=== PATIENT | female | born 1950 | race Caucasian/White ===

== ENCOUNTER 2018-03-31 14:43 | Outpatient (CLI) | payer OTHER | END 2018-03-31 14:44 | disposition home or self-care (01) | LOC: BICMAMMO 14:43 | PROVIDERS: ATTEND Obstetrics & Gynecology | DX: Z12.31 Encounter for screening mammogram for malignant neoplasm of breast (principal); Z80.3 Family history of malignant neoplasm of breast | CPT/HCPCS: 77063; 77067 ==

== ENCOUNTER 2023-03-07 07:33 | Emergency (ER) | payer MEDICARE, BC ==
[2023-03-07] MEDS ORDERED: Ondansetron PF 4 MG/2 ML Vial ONE (08:14)
[2023-03-07] MEDS ORDERED: Morphine 2 MG/ML VIAL ONE ×2 (08:14→09:11)
[2023-03-07 09:13] LABS: ALT (SGPT) 21 U/L (8-55); AST (SGOT) 45 U/L (5-34); Albumin 4.2 g/dL (3.4-4.8); Alkaline Phosphatase 67 U/L (40-110); Anion Gap 14 mmol/L (10-20); BUN (Urea Nitrogen) 12 mg/dL (9.8-20.1); Bilirubin, Total 0.2 mg/dL (0.2-1.2); Calc. Creatinine Clearance 0 mL/min (70-130); Calcium 9.5 mg/dL (7.8-10.44); Carbon Dioxide 24 mmol/L (23-31); Chloride 103 mmol/L (98-107); Estimated GFR 77; Globulin 3.2 g/dL (2.4-3.5); Glucose 125 mg/dL (83-110); Lipase 30 U/L (8-78); Potassium 4.8 mmol/L (3.5-5.1); Protein, Total 7.4 g/dL (5.8-8.1); Sodium 136 mmol/L (136-145)
[2023-03-07 09:16] LABS: #Basophils 0.1 thou/uL (0.0-0.2); #Eosinphils 0.1 thou/uL (0.0-0.7); #Lymphocytes 1.8 thou/uL (1.20-3.40); #Monocytes 0.6 thou/uL (0.11-0.59); #Neutrophils 11.5 thou/uL (1.40-6.50); %Basophils 0.4 % (0.0-1.0); %Eosinophils 0.4 % (0.0-10.0); %Neutrophils 82.1 % (42.0-75.0); Hemoglobin 13.7 g/dL (12.0-16.0); Mean Corpuscular Hemoglobin 32.2 pg (27.0-31.0); Mean Corpuscular Volume 97.7 fl (78.0-98.0); Mean Platelet Volume 7.4 fL (7.4-10.4); Platelet Count 210 10x3/uL (130-400); RBC Distribution Width 12.2 % (11.5-14.5); Red Blood Cell (RBC) Count 4.25 mill/uL (4.20-5.40)
[2023-03-07] MEDS ORDERED: Ketorolac Tromethamine 30 MG/ML VIAL ONE (10:01)
[2023-03-07 12:06] LABS: Bacteria/HPF None Seen HPF (None Seen); Bilirubin Negative (Negative); Blood, Urine Trace (Negative); Clarity Clear (Clear); Glucose, Urine (Dipstick) Normal (Negative); Ketone, Urine Trace mg/dL (Negative); Leukocyte Negative Leu/uL (Negative); Nitrite Negative (Negative); Protein, Urine (Dipstick) Negative (Neg-Trace); Specific Gravity, Urine 1.049 (1.002-1.036); Squamous Epithelial 0-3 HPF (0-3); Urobilinogen Normal mg/dL (Less than 2); WBC/HPF 0-3 HPF (0-3)
== END 2023-03-07 14:50 | disposition home or self-care (01) ==
LOC: ERS 07:33
DX: N20.2 Calculus of kidney with calculus of ureter (principal); I10 Essential (primary) hypertension; E78.00 Pure hypercholesterolemia, unspecified; I25.2 Old myocardial infarction; Z79.82 Long term (current) use of aspirin; Z79.899 Other long term (current) drug therapy
CPT/HCPCS: 36415; 71045; 74176; 74177; 76705; 80053; 81003; 81015; 83690; 84484; 85025; 93005; 96374; 96375; 96376; J1885; J2272; J2405

== ENCOUNTER 2023-03-27 13:29 | Outpatient (CLI) | payer MEDICARE, BC | END 2023-03-27 13:30 | disposition home or self-care (01) | LOC: CT 13:29 | PROVIDERS: ATTEND Family Medicine | DX: K86.2 Cyst of pancreas (principal); K86.9 Disease of pancreas, unspecified | CPT/HCPCS: 74160 ==

== ENCOUNTER 2023-08-18 07:53 | Outpatient (CLI) | payer MEDICARE, BC | END 2023-08-18 07:54 | disposition home or self-care (01) | LOC: BICMAMMO 07:53 | PROVIDERS: ATTEND Physician Assistant | DX: R92.8 Other abnormal and inconclusive findings on diagnostic imaging of breast (principal) | CPT/HCPCS: 77065; G0279 ==

== ENCOUNTER 2023-12-09 16:58 | Inpatient (IN) | payer MEDICARE, BC ==
[~2023-12-09 16:58] MED LIST: Iopamidol-370 76% 500 ML MDV (1 ML CHARGE) ONE
[2023-12-09 18:59] LABS: Hemoglobin 11.1 g/dL (12.0-16.0); Manual Diff?? YES; Mean Corpuscular HGB CONC 33.6 g/dL (32.0-36.0); Mean Corpuscular Hemoglobin 31.5 pg (27.0-31.0); Mean Corpuscular Volume 93.8 fl (78.0-98.0); Mean Platelet Volume 9.1 fL (7.4-10.4); Platelet Count 325 10x3/uL (130-400); RBC Distribution Width 16.4 % (11.5-14.5); Red Blood Cell (RBC) Count 3.52 mill/uL (4.20-5.40); White Blood Cell (WBC) Count 25.7 10x3/uL (4.8-10.8)
[2023-12-09 19:00] LABS: Delete Auto Diff?? YES
[2023-12-09 19:25] LABS: Anisocytosis SLIGHT = 6-15 cells HPF (0-5); Burr Cells SLIGHT = 2-5 cells HPF (0-1); CellaVision Operator ID LAB.MJL; Lymphocytes 1 % (21-51); Monocytes 3 % (0-10); Neutrophil 95 % (42-75); Ovalocytes SLIGHT = 2-5 cells HPF (0-1); Platelet Adequacy Comment Platelets Normal; Poikilocytosis SLIGHT = 6-15 cells HPF (0-5); Polychromasia SLIGHT = 2-3 cells HPF (0-2); Target Cells SLIGHT = 2-5 cells HPF (0-1); Total Cell Count 100
[2023-12-09 21:13] LABS: ALT (SGPT) 14 U/L (8-55); AST (SGOT) 20 U/L (5-34); Albumin 3.9 g/dL (3.4-4.8); Alkaline Phosphatase 93 U/L (40-110); Anion Gap 13 mmol/L (10-20); BUN (Urea Nitrogen) 12 mg/dL (9.8-20.1); Bilirubin, Total 0.4 mg/dL (0.2-1.2); Calc. Creatinine Clearance 0 mL/min (70-130); Calcium 8.9 mg/dL (7.8-10.44); Carbon Dioxide 23 mmol/L (23-31); Chloride 103 mmol/L (98-107); Estimated GFR 98; Globulin 2.2 g/dL (2.4-3.5); Glucose 108 mg/dL (83-110); Lipase 16 U/L (8-78); Potassium 4.2 mmol/L (3.5-5.1); Protein, Total 6.1 g/dL (5.8-8.1); Sodium 135 mmol/L (136-145)
[2023-12-09] MEDS ORDERED: Fleet Saline Enema 133 ML BOT PR SCH (22:00)
[2023-12-09] MEDS ORDERED: Ondansetron ODT 4 MG TAB PO PRN (22:02)
[2023-12-09] MEDS ORDERED: Calcium Carbonate 500 MG ChewTAB PO PRN (22:02)
[2023-12-09] MEDS ORDERED: Ciprofloxacin Lactate/D5W 400 MG in Premix 1 BAG IVPB SCH (22:15)
[2023-12-09] MEDS ORDERED: Lactated Ringer's 1,000 ML IV SCH (22:15)
[2023-12-10] MEDS: Acetaminophen 325 MG TAB PO PRN ×2 (00:04→20:32)
[2023-12-10] MEDS: ALPRAZolam 0.5 MG TAB PO PRN ×2 (00:04→20:32)
[2023-12-10 00:28] VITALS: BMI 17.6
[2023-12-10 05:28] LABS: #Basophils 0.1 thou/uL (0.0-0.2); #Eosinphils 0.2 thou/uL (0.0-0.7); #Monocytes 0.7 thou/uL (0.11-0.59); #Neutrophils 6.8 thou/uL (1.40-6.50); %Basophils 0.5 % (0.0-1.0); %Eosinophils 2.5 % (0.0-10.0); %Monocytes 7.2 % (0.0-10.0); %Neutrophils 71.4 % (42.0-75.0); Hematocrit 31.1 % (36.0-47.0); Hemoglobin 10.2 g/dL (12.0-16.0); Mean Corpuscular HGB CONC 32.8 g/dL (32.0-36.0); Mean Corpuscular Hemoglobin 31.2 pg (27.0-31.0); Mean Corpuscular Volume 95.1 fl (78.0-98.0); Mean Platelet Volume 9.2 fL (7.4-10.4); Platelet Count 312 10x3/uL (130-400); RBC Distribution Width 16.6 % (11.5-14.5); Red Blood Cell (RBC) Count 3.27 mill/uL (4.20-5.40)
[2023-12-10 05:29] LABS: White Blood Cell (WBC) Count 9.6 10x3/uL (4.8-10.8)
[2023-12-10 05:56] LABS: Anion Gap 12 mmol/L (10-20); BUN (Urea Nitrogen) 11 mg/dL (9.8-20.1); Calc. Creatinine Clearance 69 mL/min (70-130); Calcium 8.5 mg/dL (7.8-10.44); Carbon Dioxide 22 mmol/L (23-31); Chloride 105 mmol/L (98-107); Estimated GFR 98; Glucose 77 mg/dL (83-110); Potassium 3.4 mmol/L (3.5-5.1); Sodium 136 mmol/L (136-145)
[2023-12-10] MEDS ORDERED: metroNIDAZOLE 500 MG in Premix 1 BAG IVPB SCH (06:00)
[2023-12-10] MEDS: Naloxegol 12.5 MG TAB PO SCH (06:23)
[2023-12-10] MEDS: Mometasone 200 MCG/Formoterol 5 MCG 120 PUFF INHALER INH SCH ×2 (06:48→19:00)
[2023-12-10] MEDS: Famotidine 20 MG TAB PO SCH ×2 (08:14→19:34)
[2023-12-10] MEDS ORDERED: Ciprofloxacin Lactate/D5W 400 MG in Premix 1 BAG IVPB SCH (09:00)
[2023-12-10] MEDS ORDERED: fentaNYL 50 mcg/mL 1 mL Vial ONE ×2 (09:13→10:33)
[2023-12-10] MEDS ORDERED: PROPOFOL 20 ML ONE (09:14)
[2023-12-10] MEDS ORDERED: Lidocaine 2% PF 100 mg/5 ml Syringe ONE (09:14)
[2023-12-10] MEDS ORDERED: Rocuronium Bromide 10 MG/ML (10ML VIAL) ONE (09:19)
[2023-12-10] MEDS ORDERED: SUCCINYLCHOLINE/SOD CL,ISO/PF 200 MG/10 ML SYRINGE FS ONE (09:25)
[2023-12-10] MEDS ORDERED: SUGAMMADEX SODIUM 200 MG/2 ML VIAL ONE (09:26)
[2023-12-10] MEDS ORDERED: ePHEDrine Sulfate 50 MG/10 ML VIAL ONE (10:39)
[2023-12-10] MEDS ORDERED: GoLYTELY 4,000 ml Bottle PO SCH (11:00)
[2023-12-10] MEDS ORDERED: Hydrocortisone Acetate 25 MG Suppository PR PRN (18:36)
[2023-12-10] MEDS: Heparin 5,000 UNITS/ML VIAL SC SCH (19:35)
[2023-12-10] MEDS: Ciprofloxacin Lactate/D5W 400 MG in Premix 1 BAG IVPB SCH (19:35)
[2023-12-10] MEDS: Polyethylene Glycol 3350 17 GM Packet PO SCH (20:32)
[2023-12-10] MEDS: metroNIDAZOLE 500 MG in Premix 1 BAG IVPB SCH (20:32)
[2023-12-10] MEDS ORDERED: Rosuvastatin 20 MG TAB PO SCH (21:00)
[2023-12-10] MEDS ORDERED: Sertraline 100 MG TAB PO SCH (21:00)
[2023-12-10] MEDS ORDERED: Aspirin Chewable 81 MG TAB PO SCH (21:00)
[2023-12-10] MEDS ORDERED: Amlodipine 5 MG TAB PO SCH (21:00)
[2023-12-11 05:53] LABS: #Basophils 0.1 thou/uL (0.0-0.2); #Eosinphils 0.6 thou/uL (0.0-0.7); #Monocytes 0.9 thou/uL (0.11-0.59); #Neutrophils 4.2 thou/uL (1.40-6.50); %Basophils 0.7 % (0.0-1.0); %Eosinophils 7.6 % (0.0-10.0); %Lymphocytes 23.5 % (21.0-51.0); %Monocytes 11.6 % (0.0-10.0); %Neutrophils 56.3 % (42.0-75.0); Hematocrit 29.5 % (36.0-47.0); Hemoglobin 9.4 g/dL (12.0-16.0); Mean Corpuscular HGB CONC 31.9 g/dL (32.0-36.0); Mean Corpuscular Volume 94.2 fl (78.0-98.0); Mean Platelet Volume 9.1 fL (7.4-10.4); Platelet Count 277 10x3/uL (130-400); Red Blood Cell (RBC) Count 3.13 mill/uL (4.20-5.40); White Blood Cell (WBC) Count 7.5 10x3/uL (4.8-10.8)
[2023-12-11 06:21] LABS: Anion Gap 9 mmol/L (10-20); BUN (Urea Nitrogen) 7 mg/dL (9.8-20.1); Calc. Creatinine Clearance 66 mL/min (70-130); Calcium 8.2 mg/dL (7.8-10.44); Carbon Dioxide 28 mmol/L (23-31); Chloride 106 mmol/L (98-107); Estimated GFR 97; Glucose 100 mg/dL (83-110); Magnesium 1.9 mg/dL (1.6-2.6); Potassium 3.1 mmol/L (3.5-5.1); Sodium 140 mmol/L (136-145)
[2023-12-11] MEDS: metroNIDAZOLE 500 MG in Premix 1 BAG IVPB SCH ×2 (06:25→14:40)
[2023-12-11] MEDS: Naloxegol 12.5 MG TAB PO SCH (06:25)
[2023-12-11] MEDS ORDERED: Potassium Chloride 20 MEQ TAB PO SCH ×2 (07:45→12:15)
[2023-12-11] MEDS: Mometasone 200 MCG/Formoterol 5 MCG 120 PUFF INHALER INH SCH (08:26)
[2023-12-11] MEDS: Famotidine 20 MG TAB PO SCH (09:24)
[2023-12-11] MEDS: Polyethylene Glycol 3350 17 GM Packet PO SCH (09:24)
[2023-12-11] MEDS: Heparin 5,000 UNITS/ML VIAL SC SCH (09:25)
[2023-12-11] MEDS: Ciprofloxacin Lactate/D5W 400 MG in Premix 1 BAG IVPB SCH (11:09)
[2023-12-11 15:50] VITALS: BP 116/58; TEMP 98.3
== END 2023-12-11 16:09 | disposition home or self-care (01) | DRG 389 ==
LOC: ERS 16:58 → SJJU 22:06 → OBSVTOIN 12-10 16:15
PROVIDERS: ADMIT Student in an Organized Health Care Education/Training Program; ATTEND Hospitalist
DX: K56.49 Other impaction of intestine (principal); C25.9 Malignant neoplasm of pancreas, unspecified; K52.89 Other specified noninfective gastroenteritis and colitis; E78.5 Hyperlipidemia, unspecified; I10 Essential (primary) hypertension; I25.10 Atherosclerotic heart disease of native coronary artery without angina pectoris; J44.9 Chronic obstructive pulmonary disease, unspecified; F41.9 Anxiety disorder, unspecified; F32.A Depression, unspecified; E87.6 Hypokalemia; Z91.040 Latex allergy status; Z88.0 Allergy status to penicillin; Z91.09 Other allergy status, other than to drugs and biological substances; Z79.82 Long term (current) use of aspirin; Z79.899 Other long term (current) drug therapy; Z87.891 Personal history of nicotine dependence; Z90.81 Acquired absence of spleen; Z90.710 Acquired absence of both cervix and uterus; Z98.890 Other specified postprocedural states; I25.2 Old myocardial infarction
CPT/HCPCS: 36415; 74177; 80048; 80053; 83690; 83735; 85025; J0744; J1644; J2001; J2704; J3010; J7120; Q9967

== ENCOUNTER 2024-09-23 09:49 | Outpatient (CLI) | payer MEDICARE, BC | END 2024-09-23 09:50 | disposition home or self-care (01) | LOC: BICMAMMO 09:49 | PROVIDERS: ATTEND Family Medicine | DX: M85.89 Other specified disorders of bone density and structure, multiple sites (principal); M81.0 Age-related osteoporosis without current pathological fracture | CPT/HCPCS: 77080 ==

== ENCOUNTER 2024-12-03 08:26 | Outpatient (CLI) | payer MEDICARE, BC ==
[2024-12-03] MEDS ORDERED: Iopamidol 370 76% 100 ML VIAL ONE (08:45)
== END 2024-12-03 08:27 | disposition home or self-care (01) ==
LOC: BICCT 08:26
PROVIDERS: ATTEND Internal Medicine Hematology & Oncology
DX: C25.8 Malignant neoplasm of overlapping sites of pancreas (principal); Z90.411 Acquired partial absence of pancreas
CPT/HCPCS: 71260; 74160

== ENCOUNTER 2024-12-09 09:30 | Outpatient (CLI) | payer MEDICARE, BC | END 2024-12-09 09:31 | disposition home or self-care (01) | LOC: PET 09:30 | PROVIDERS: ATTEND Internal Medicine Hematology & Oncology | DX: C25.8 Malignant neoplasm of overlapping sites of pancreas (principal); R93.7 Abnormal findings on diagnostic imaging of other parts of musculoskeletal system; R91.1 Solitary pulmonary nodule; E88.89 Other specified metabolic disorders | CPT/HCPCS: 78815; A9552 ==

== ENCOUNTER 2025-02-04 12:50 | Emergency (ER) | payer MEDICARE, BC ==
[2025-02-04 13:27] LABS: #Basophils 0.03 10x3/uL (0.0-0.2); %Basophils 0.4 % (0.0-1.0); %Eosinophils 1.4 % (0.0-10.0); %Lymphocytes 6.3 % (21.0-51.0); %Monocytes 5.2 % (0.0-10.0); %Neutrophils 86.4 % (42.0-75.0); Hematocrit 36.4 % (36.0-47.0); Hemoglobin 12.2 g/dL (12.0-16.0); Mean Corpuscular HGB CONC 33.5 g/dL (32.0-36.0); Mean Corpuscular Hemoglobin 30.1 pg (27.0-31.0); Mean Corpuscular Volume 89.9 fL (78.0-98.0); Mean Platelet Volume 8.9 fL (7.4-10.4); Platelet Count 224 10x3/uL (130-400); RBC Distribution Width 17.5 % (11.5-14.5); Red Blood Cell (RBC) Count 4.05 mill/uL (4.20-5.40)
[2025-02-04 13:50] LABS: Troponin I Less than 0.010 ng/mL (< 0.028)
[2025-02-04 13:57] LABS: ALT (SGPT) 11 U/L (Less than 34); AST (SGOT) 26 U/L (11-34); Albumin 3.7 g/dL (3.1-4.5); Alkaline Phosphatase 53 U/L (40-110); Anion Gap 15 mmol/L (10-20); BUN (Urea Nitrogen) 8 mg/dL (9.8-20.1); Bilirubin, Total 0.4 mg/dL (0.3-1.2); Calc. Creatinine Clearance 0 mL/min (70-130); Calcium 8.9 mg/dL (7.8-10.44); Carbon Dioxide 25 mmol/L (23-31); Chloride 102 mmol/L (98-107); Estimated GFR 97; Globulin 2.9 g/dL (2.4-3.5); Glucose 120 mg/dL (83-110); Lipase 12 U/L (8-78); Potassium 3.4 mmol/L (3.5-5.1); Protein, Total 6.6 g/dL (5.8-8.1); Sodium 139 mmol/L (136-145)
[2025-02-04] MEDS ORDERED: Ondansetron PF 4 MG/2 ML Vial ONE (14:00)
== END 2025-02-04 17:03 | disposition home or self-care (01) ==
LOC: ERS 12:50
DX: R11.2 Nausea with vomiting, unspecified (principal); C25.9 Malignant neoplasm of pancreas, unspecified; I10 Essential (primary) hypertension; J44.9 Chronic obstructive pulmonary disease, unspecified; Z87.891 Personal history of nicotine dependence
CPT/HCPCS: 74177; 80053; 83605; 83690; 84484; 85025; 93005; J2405; 36415; 96361; 96374